=== PATIENT | female | born 1990 | race Caucasian/White ===

== ENCOUNTER 2019-09-12 11:33 | Inpatient (IN) | payer SELFPAY ==
[~2019-09-12 11:33] MED LIST: Scopolamine 1.5 MG Transdermal Patch TRDERM ONE
[2019-09-12] MEDS ORDERED: Scopolamine 1.5 MG Transdermal Patch ONE (11:45)
[2019-09-12] MEDS ORDERED: Citric Acid/Sodium Citrate Solution 30 ML Cup ONE (11:49)
[2019-09-12] MEDS ORDERED: Oxytocin 10 Units/1 ML SDV IM ONE (12:00)
[2019-09-12] MEDS ORDERED: OXYTOCIN IV SCH (12:15)
[2019-09-12] MEDS ORDERED: LACTATED RINGERS IV SCH (12:15)
[2019-09-12] MEDS: Ibuprofen 600 MG Tab PO PRN ×2 (13:47→20:35)
--- NOTE | 2019-09-12 16:52 | DEL ---
DATE OF DELIVERY: 09/12/2019 Taylor Kaba is a 29-year-old multigravida female, who was originally transferred from the [facility] in [place] in with family. Due date 10/22/2018. She had spontaneous rupture of membranes and reproducible contractions. Clinical history is not available. Care was provided in [place], [place]. When she presented, she was 10 cm, vertex presentation. heart tones were satisfactory. She was prepped and taken to the operating room. Risks and benefits discussed. Dr. Virk was here for surgical consultation. When she got to the operating room, was placed on the table, Song catheter was introduced, the baby was deep in the pelvis. She was allowed to labor. Single contraction delivered in TIM presentation, no nuchal cord. weight undetermined at the time of this dictation, Apgars were 9 and 9. We tried no resuscitation. Cord blood was obtained for investigations as appropriate, reclamped. Uterine massage. Placenta delivered into the vagina, was gently removed, intact Fang. Uterine tone was maintained by 10 units of intramuscular Pitocin. Genital exam revealed no signs of defect in the lower uterine segment. She responded well to Pitocin, Pitocin will be given IV. Further notes to be established ongoing care. /[id number] LYNN/SARAVANAN
[2019-09-12] MEDS ORDERED: Citric Acid/Sodium Citrate Solution 30 ML Cup PO ONE (17:20)
[2019-09-13] MEDS: Ibuprofen 600 MG Tab PO PRN ×2 (06:00→13:06)
--- NOTE | 2019-09-13 13:16 | PN ---
DATE SEEN: 09/13/2019 SUBJECTIVE: Taylor Kaba is a 29-year-old multigravida female, 1 day . Doing remarkably well. Pre-delivery hemoglobin 10.9, blood type A positive, hemoglobin today 9.1. Having no ill side effects. Bleeding, lochia, and flow have been moderate. She has been up and ambulating, minimal pain. Voiding without difficulty. Of great concern, urine revealed positive for amphetamine. Baby has been transferred to [place] for observation. Ret[employer] Plan Counselor participated in her care last evening. Otherwise, doing well. OBJECTIVE: GENERAL: Nursing staff in attendance. ABDOMEN: Benign. U-2 with good tone. Perineum was inspected. No tears or complicating issues. ASSESSMENT: 1. day 1. 2. Moderate anemia. PLAN: vitamin 2 daily; spoke to iron pills, patient declined. Ibuprofen 600 mg t.i.d. to q.i.d., 2400 mg per day. Appropriate perineal care, avoiding intercourse, napkins - no tampons, moderated lifting. Will have 6-week followup with provider of interest. /[id number] LYNN/SARAVANAN
[2019-09-14 08:09] LABS: HBSAG SCREEN Negative (Negative); HIV SCREEN 4TH GENERATION WRFX Non Reactive (Non Reactive)
--- NOTE | 2019-09-16 13:01 | HP ---
ADMIT DATE: 09/12/2019 HISTORY OF PRESENT ILLNESS: Taylor Kaba is a 29-year-old, 5, para 5, female, admitted urgently, being transferred from [facility] in [place], [place], earlier today. She had been at the [facility] with 3 of her growing children and a significant male partner. She had spontaneous rupture of membranes and the onset of contractions and labor. In transit, no complicating issue. Of note, no care, living in [facility]. Has had previous surgery, twin infants, first delivered vaginally, second operatively with some urgency, and a followup in July of 2018. Again, no care. On admission, her exam was satisfactory. heart tones were successful, she was found to be about 10 cm. Given previous sections, taken to the operating room and began prepping. While in the operating room, she had a sense of urge to push, baby was low in the pelvis, and single push delivered in TIM presentation in McRobert's position. Rapid delivery. No nuchal cord. The child was good tone and color. The mouth and oropharynx were suctioned aggressively, cord was doubly clamped, and the child assisted by nursing staff. No complicating issue, female , weight 7 pounds 11-1/2 ounces, score 9 and 9. Three-cord vessels were identified. There was spontaneous placental separation, 3-cord vessels intact. 10 units of Pitocin were given IM. Tone was reasonable. There was moderate bleeding. Massage was beneficial. A gentle exam, intrauterine along the lower uterine segment revealed no defects in the lower uterine segment. Bleeding was controlled with Pitocin. Intravenous Pitocin followed. ASSESSMENT: 1. Precipitous delivery, previous section, vaginal delivery. Female , weight 7 pounds 11-1/2 ounces, scores 9 and 9. 2. No episiotomy. PLAN: Close observation. Uterine observation. We will continue IV Pitocin, complementary care and well-being. /[id number] LYNN/SARAVANAN CINTRON
[2019-09-17 17:08] LABS: TREPONEMA PALLIDUM ANTIBODIES Non Reactive (Non Reactive)
== END 2019-09-13 14:08 | disposition home or self-care (01) | DRG 807 ==
LOC: FB.OB 11:33
PROVIDERS: ADMIT Family Medicine; ATTEND Family Medicine
PROC: 10E0XZZ Delivery of Products of Conception, External Approach (ICD-10-PCS; principal; 2019-09-12)
DX: O99.03 Anemia complicating the puerperium (principal); Z37.0 Single live birth; D64.9 Anemia, unspecified; Z3A.38 38 weeks gestation of pregnancy
CPT/HCPCS: 36415; 59409; 80305-QW; 85014; 85018; 85025; 86593; 86762; 86780; 86850; 86900; 86901; 87340; 87389; A9270-GY; J2590; J7120